=== PATIENT | female | born 1950 | race Caucasian/White ===

== ENCOUNTER 2018-07-09 13:42 | Emergency (ER) | payer OTHER ==
[~2018-07-09] VITALS: Ht 167.6 cm; Wt 75.3 kg
[2018-07-09 13:55] VITALS: Ht 167.6 cm; Wt 75.3 kg
[2018-07-09 15:49] VITALS: BP 154/79
== END 2018-07-09 15:49 | disposition home or self-care (01) ==
LOC: ED 13:42
DX: G89.29 Other chronic pain (principal); R10.13 Epigastric pain; I10 Essential (primary) hypertension; Z88.0 Allergy status to penicillin; Z88.5 Allergy status to narcotic agent; Z88.1 Allergy status to other antibiotic agents; Z90.89 Acquired absence of other organs; Z90.49 Acquired absence of other specified parts of digestive tract
CPT/HCPCS: J3010; J3490

== ENCOUNTER 2018-08-14 20:35 | Emergency (ER) | payer OTHER ==
[2018-08-14 20:39] VITALS: BP 146/72
== END 2018-08-14 22:41 | disposition home or self-care (01) ==
LOC: ED 20:35
DX: M25.532 Pain in left wrist (principal); I10 Essential (primary) hypertension; Z90.49 Acquired absence of other specified parts of digestive tract; Z90.89 Acquired absence of other organs; Z88.0 Allergy status to penicillin; Z88.1 Allergy status to other antibiotic agents